=== PATIENT | female | born 2005 | race African-American/Black ===

== ENCOUNTER 2023-12-13 20:40 | Emergency (ER) | payer OTHER ==
[2023-12-13] MEDS ORDERED: Ketorolac Tromethamine 30 MG (1 mL) VIAL ONE (21:00)
[2023-12-13] MEDS ORDERED: Ondansetron PF 4 MG/2 ML Vial ONE (21:00)
== END 2023-12-13 22:05 | disposition home or self-care (01) ==
LOC: ERS 20:40
DX: S63.502A Unspecified sprain of left wrist, initial encounter (principal); S63.501A Unspecified sprain of right wrist, initial encounter; S60.812A Abrasion of left wrist, initial encounter; V43.52XA Car driver injured in collision with other type car in traffic accident, initial encounter; F17.290 Nicotine dependence, other tobacco product, uncomplicated
CPT/HCPCS: 71045; 96374; 96375; G0390; J1885; J2405